=== PATIENT | male | born 2000 | race Caucasian/White ===

== ENCOUNTER 2024-01-17 10:58 | Emergency (ER) | payer BC ==
[2024-01-17] MEDS: Lidocaine 1% 10 ML MDV INJECT ONE (11:25)
[2024-01-17] MEDS: Diphtheria,Pertussis(Acell),Tetanus Vaccine 0.5 ML Syringe IM ONE (11:25)
[2024-01-17] MEDS: HYDROmorphone 1 MG/ML Syringe IM ONE (12:09)
== END 2024-01-17 13:00 | disposition home or self-care (01) ==
LOC: JD.ED 10:58
DX: S02.5XXA Fracture of tooth (traumatic), initial encounter for closed fracture (principal); S01.511A Laceration without foreign body of lip, initial encounter; Z23 Encounter for immunization; W23.1XXA Caught, crushed, jammed, or pinched between stationary objects, initial encounter
CPT/HCPCS: 12013; 90471; 90715; 96372; 99282; J1170; 99283; J3490

== ENCOUNTER 2024-12-01 06:43 | Emergency (ER) | payer BC ==
[2024-12-01] MEDS ORDERED: Naloxone 0.4 MG/ML SDV IVPUSH PRN (07:00)
[2024-12-01] MEDS: HYDROmorphone 1 MG/ML Syringe IVPUSH ONE (07:13)
[2024-12-01] MEDS: Ketorolac 60 MG/2 ML SDV IM ONE (07:16)
== END 2024-12-01 08:30 | disposition home or self-care (01) ==
LOC: JD.ED 06:43
DX: S83.92XA Sprain of unspecified site of left knee, initial encounter (principal); Z79.899 Other long term (current) drug therapy; V86.56XA Driver of dirt bike or motor/cross bike injured in nontraffic accident, initial encounter; Y93.89 Activity, other specified
CPT/HCPCS: 73562; 96372; 96374; 99283; J1171; J1885